=== PATIENT | female | born 1970 ===

== ENCOUNTER 2024-08-07 15:29 | Emergency (ER) | payer OTHER | END 2024-08-07 16:40 | disposition home or self-care (01) | LOC: LL.ED 15:29 | DX: Z45.2 Encounter for adjustment and management of vascular access device (principal) | CPT/HCPCS: 87070; 87205; 99283; 99284 ==

== ENCOUNTER 2025-06-02 19:21 | Emergency (ER) | payer MEDICARE ==
[2025-06-02] MEDS ORDERED: Sodium Chloride 0.9% 10 ML Syringe FLUSH PRN (19:28)
[2025-06-02] MEDS: LORazepam 2 MG/ML SDV IVPUSH ONE (19:37)
[2025-06-02] MEDS: Nitroglycerin 0.4 MG Tab.SL SL ONE (19:37)
[2025-06-02] MEDS: Lactated Ringers 1,000 ML IV SCH (19:40)
[2025-06-02 19:45] LABS: BASOPHILS ABSOLUTE AUTO 0.05 K/uL (0.00-0.20); BASOPHILS PERCENT AUTO 0.8 % (0.0-2.0); EOSINOPHILS ABSOLUTE AUTO 0.05 K/uL (0.00-0.50); EOSINOPHILS PERCENT AUTO 0.8 % (0.0-5.0); IMMATURE GRAN ABSOLUTE AUTO 0.01 10^3/uL (0.00-0.04); IMMATURE GRAN PERCENT AUTO 0.2 % (0.0-0.4); LYMPHOCYTES ABSOLUTE AUTO 2.05 K/uL (0.50-3.50); LYMPHOCYTES PERCENT AUTO 31.3 % (10.0-50.0); MONOCYTES ABSOLUTE AUTO 0.84 K/uL (0.00-1.00); MONOCYTES PERCENT AUTO 12.8 % (2.0-14.0); NEUTROPHILS ABSOLUTE AUTO 3.55 K/uL (1.40-7.00); NEUTROPHILS PERCENT AUTO 54.1 % (45.0-80.0); PLATELET COUNT,PLT 136 K/uL (150-350); RED BLOOD CELL COUNT 4.27 M/uL (3.77-5.09); RED CELL DISTRIBUTION WIDTH 14.6 % (11.2-14.1); WHITE BLOOD CELL COUNT,WBC 6.6 K/uL (4.0-10.2)
[2025-06-02 20:10] LABS: LACTIC ACID 2.6 mmol/L (0.4-2.0)
[2025-06-02 20:12] LABS: INR 1.3 (0.9-1.1); PTT,PARTIAL THROMBOPLSTIN TIME 30.2 SEC (23.8-34.4)
[2025-06-02 20:22] LABS: ALANINE AMINOTRANSFERASE,ALT 19 U/L (12-78); ASPARTATE AMNIOTRANSFERASE,AST 42 U/L (15-37); BILIRUBIN TOTAL 1.7 mg/dL (0.2-1.0); BLOOD UREA NITROGEN,BUN 8 mg/dL (7-18); CARBON DIOXIDE,CO2 22.5 mmol/L (21.0-32.0); CHLORIDE,CL 102 mmol/L (98-107); CREATININE 1.05 mg/dL (0.51-1.17); GLUCOSE RANDOM 107 mg/dL (70-99); POTASSIUM,K 3.1 mmol/L (3.5-5.1); PROTEIN TOTAL,TP 6.8 g/dL (6.4-8.2); SODIUM,NA 136 mmol/L (136-145); TSH ULTRASENSITIVE 1.665 mIU/mL (0.358-3.740)
[2025-06-02 20:28] LABS: AMPHETAMINES SCREEN, URINE NEGATIVE (NEGATIVE); COCAINE METABOLITES,URINE NEGATIVE (NEGATIVE); EDDP,URINE SCREEN NEGATIVE (NEGATIVE); METHAMPHETAMINES SCREEN, URINE NEGATIVE (NEGATIVE); TCA SCREEN,URINE NEGATIVE (NEGATIVE); THC SCREEN,URINE 50 NG/ML NEGATIVE (NEGATIVE)
[2025-06-02 20:29] LABS: ESTIMATED GFR 63 mL/min (>=60)
[2025-06-02 20:30] LABS: ETHANOL BLOOD MEDICAL 0.000 g/dL (0.000-0.080)
[2025-06-02 20:31] LABS: BUPRENORPHINE SCREEN,URINE NEGATIVE (NEGATIVE); OXYCODONE SCREEN,URINE NEGATIVE (NEGATIVE)
== END 2025-06-02 21:50 | disposition home or self-care (01) ==
LOC: LL.ED 19:21
DX: R07.9 Chest pain, unspecified (principal); E86.0 Dehydration
CPT/HCPCS: 36415; 71045; 80053; 80305; 80307; 83605; 83735; 84443; 84484; 85025; 85379; 85610; 85730; 86140; 87040; 93005; 96361; 96374; 99285; A9270; J2060; J7120